=== PATIENT | male | born 1945 | race Caucasian/White ===

== ENCOUNTER 2017-03-18 17:30 | Inpatient (IN) | payer MEDICARE, OTHER ==
[~2017-03-18] VITALS: Ht 170.2 cm; Wt 95.3 kg
[2017-03-18] MEDS ORDERED: SODIUM CHLORIDE 0.9% 500 ML IV ONE (17:58)
[2017-03-18 18:24] LABS: HEMATOCRIT. 41.8 % (42.0-52.0); HEMOGLOBIN. 14.5 g/dL (14.0-18.0); MEAN CORPUSCULAR HEMOGLOBIN 32.8 pg (28.0-32.0); MEAN CORPUSCULAR VOLUME 94.6 fL (80.0-94.0); MEAN PLATELET VOLUME 7.6 fl (7.4-10.4); PLATELET 195 x1000/uL (130-400); RED BLOOD CELL COUNT 4.41 mill/uL (4.7-6.1); RED CELL DISTRIBUTION WIDTH 13.3 % (11.6-14.6)
[2017-03-18] MEDS ORDERED: HYDRALAZINE 20MG/ML VIAL IV SCH (18:30)
[2017-03-18] MEDS ORDERED: HYDRALAZINE (NEO) 1MG/ML IV ONE (18:30)
[2017-03-18 18:33] LABS: PARTIAL THROMBOPLASTIN TIME 27.8 sec (24.0-34.0); PROTHROMBIN TIME 10.3 sec
[2017-03-18 18:41] LABS: CARBON DIOXIDE 22 mEq/L (21-32); CHLORIDE 103 mEq/L (98-107); TROPONIN I < 0.02 ng/mL (0.00-0.04)
[2017-03-18 18:42] LABS: CREATINE KINASE MB FRACTION 1.2 ng/mL (0.5-3.6)
[2017-03-18 19:05] LABS: PLATELET ESTIMATE NORMAL
[2017-03-18] MEDS ORDERED: FUROSEMIDE 20MG/2ML VIAL IVP ONE (19:15)
[2017-03-18] MEDS ORDERED: PRAV40TA58 PO (23:51)
[2017-03-18] MEDS ORDERED: PRAS10TA6 PO (23:51)
[2017-03-18] MEDS ORDERED: ALLO300T2 PO (23:51)
[2017-03-19] MEDS ORDERED: ACETAMINOPHEN 325MG TABLET PO PRN (00:45)
[2017-03-19] MEDS ORDERED: DIPHENHYDRAMINE 50MG/ML VIAL IV PRN (00:45)
[2017-03-19] MEDS ORDERED: CLONIDINE 0.1MG TABLET PO PRN (00:45)
[2017-03-19] MEDS ORDERED: MAGNESIUM/ALUMINUM HYDROXIDE/SIMETHICONE 30ML UDC PO PRN (00:45)
[2017-03-19] MEDS ORDERED: GUAIFENESIN 200MG/10ML SUGAR FREE UDC PO PRN (00:45)
[2017-03-19] MEDS ORDERED: ONDANSETRON HCL 4MG/2ML VIAL IV PRN (00:45)
[2017-03-19] MEDS ORDERED: HYDRALAZINE 20MG/ML VIAL IV PRN (04:30)
[2017-03-19] MEDS ORDERED: MECLIZINE 25MG TABLET PO PRN (04:30)
[2017-03-19] MEDS ORDERED: HYDRALAZINE 10 MG in SODIUM CHLORIDE 0.9% 49.5 ML IV PRN (04:45)
[2017-03-19] MEDS: SODIUM CHLORIDE 0.9% INJ 3ML FLUSH IVF SCH ×2 (05:47→13:32)
[2017-03-19] MEDS: CLOPIDOGREL 75MG TABLET PO SCH (08:10)
[2017-03-19] MEDS: ALLOPURINOL 300 MG TABLET PO SCH (08:10)
[2017-03-19] MEDS ORDERED: LOSARTAN POTASSIUM 50 MG TABLET PO SCH (10:10)
[2017-03-19] MEDS: AMLODIPINE 10MG TABLET PO SCH (11:17)
[2017-03-19] MEDS: METOPROLOL TARTRATE 25MG TABLET PO SCH ×2 (11:19→21:16)
[2017-03-19] MEDS: ATORVASTATIN CALCIUM 40MG TABLET PO SCH (21:15)
[2017-03-19] MEDS: LISINOPRIL 20MG TABLET PO SCH (21:16)
[2017-03-20] MEDS: SODIUM CHLORIDE 0.9% INJ 3ML FLUSH IVF SCH ×4 (00:05→21:59)
[2017-03-20] MEDS: CLOPIDOGREL 75MG TABLET PO SCH (08:23)
[2017-03-20] MEDS: AMLODIPINE 10MG TABLET PO SCH (08:23)
[2017-03-20] MEDS: ALLOPURINOL 300 MG TABLET PO SCH (08:24)
[2017-03-20] MEDS: LISINOPRIL 20MG TABLET PO SCH ×2 (08:24→20:33)
[2017-03-20] MEDS: METOPROLOL TARTRATE 25MG TABLET PO SCH ×2 (08:26→20:33)
[2017-03-20 11:50] LABS: BASOPHILS % 0.4 % (0.0-2.0); EOSINOPHILS % 1.1 % (0.0-5.0); HEMATOCRIT. 39.7 % (42.0-52.0); HEMOGLOBIN. 13.6 g/dL (14.0-18.0); MEAN CORPUSCULAR HEMOGLOBIN 32.7 pg (28.0-32.0); MEAN CORPUSCULAR VOLUME 95.5 fL (80.0-94.0); MEAN PLATELET VOLUME 8.1 fl (7.4-10.4); MONOCYTES % 6.5 % (2.0-8.0); PLATELET 186 x1000/uL (130-400); RED BLOOD CELL COUNT 4.15 mill/uL (4.7-6.1); RED CELL DISTRIBUTION WIDTH 12.7 % (11.6-14.6)
[2017-03-20 11:58] LABS: CARBON DIOXIDE 25 mEq/L (21-32); CHLORIDE 101 mEq/L (98-107)
[2017-03-20] MEDS: ATORVASTATIN CALCIUM 40MG TABLET PO SCH (20:32)
[2017-03-21] MEDS: AMLODIPINE 10MG TABLET PO SCH (08:26)
[2017-03-21] MEDS: METOPROLOL TARTRATE 25MG TABLET PO SCH (08:26)
[2017-03-21] MEDS: CLOPIDOGREL 75MG TABLET PO SCH (08:26)
[2017-03-21] MEDS: LISINOPRIL 20MG TABLET PO SCH (08:26)
[2017-03-21] MEDS: ALLOPURINOL 300 MG TABLET PO SCH (08:29)
[2017-03-21 12:52] VITALS: BP 135/74
== END 2017-03-21 13:58 | disposition home or self-care (01) | DRG 73 ==
LOC: ER 18:24 → 8WST 19:34 → EDBEDREQ 20:02 → ENRESERV 20:11
PROVIDERS: ADMIT Internal Medicine; ATTEND Internal Medicine
DX: G90.8 Other disorders of autonomic nervous system (principal); I50.43 Acute on chronic combined systolic (congestive) and diastolic (congestive) heart failure; I11.0 Hypertensive heart disease with heart failure; I50.9 Heart failure, unspecified; I25.10 Atherosclerotic heart disease of native coronary artery without angina pectoris; E78.00 Pure hypercholesterolemia, unspecified; I16.0 Hypertensive urgency; R35.1 Nocturia; R21 Rash and other nonspecific skin eruption; E78.5 Hyperlipidemia, unspecified; M10.9 Gout, unspecified; I25.2 Old myocardial infarction; Z79.82 Long term (current) use of aspirin; Z79.899 Other long term (current) drug therapy; Z87.891 Personal history of nicotine dependence; Z95.5 Presence of coronary angioplasty implant and graft
CPT/HCPCS: 36415; 70450; 71010; 80048; 80053; 82553; 83735; 83880; 84484; 85025; 85610; 85730; 93005; 93306; 96374; 96375; 99291; J0360; J1200; J1940; J7040

== ENCOUNTER 2017-12-11 22:30 | Emergency (ER) | payer MEDICARE, OTHER ==
[~2017-12-11] VITALS: Ht 162.6 cm; Wt 102.0 kg
[~2017-12-11 22:30] MED LIST: ALLO300T2 PO; PRAS10TA6 PO; PRAV40TA58 PO
[2017-12-12] MEDS ORDERED: LIDOCAINE HCL 1% 20ML VIAL (Pyxis) INJ MC ONE (05:00)
[2017-12-12] MEDS ORDERED: BACITRACIN ZINC OINT UDPKT TOP ONE (05:00)
[2017-12-12] MEDS ORDERED: TETANUS AND DIPHTHERIA TOX/PF 0.5ML SYR (ADULT) IM ONE (05:00)
[2017-12-12] MEDS ORDERED: TETANUS, DIPHTHERIA, PERTUSSIS VAC/PF 0.5ML (>7YR OLD) IM ONE (05:30)
[2017-12-12 05:33] VITALS: BP 127/67
[2017-12-12] MEDS ORDERED: ACETAMINOPHEN 325MG TABLET PO ONE (06:30)
== END 2017-12-12 06:48 | disposition home or self-care (01) ==
LOC: ER 22:40
DX: S61.412A Laceration without foreign body of left hand, initial encounter (principal); M25.562 Pain in left knee; W01.0XXA Fall on same level from slipping, tripping and stumbling without subsequent striking against object, initial encounter; Y93.89 Activity, other specified; Y92.89 Other specified places as the place of occurrence of the external cause; I25.2 Old myocardial infarction; I10 Essential (primary) hypertension; M85.80 Other specified disorders of bone density and structure, unspecified site; Z95.5 Presence of coronary angioplasty implant and graft
CPT/HCPCS: 12002; 73130; 73560; 90471; 90715; 99284; J3490; 90714